=== PATIENT | male | born 1955 | race Caucasian/White ===

== ENCOUNTER 2024-08-18 12:57 | Inpatient (IN) | payer MEDICARE ==
[2024-08-18] VITALS (9 sets, daily range): BP systolic 146–165; BP diastolic 89–104; PULSE 55–67; RESP 12–17; O2SAT 91–96
[~2024-08-18] VITALS: Ht 182.9 cm; Wt 104.6 kg
[2024-08-18] MEDS ORDERED: ASPI-1071 PO (13:07)
[2024-08-18 13:15] LABS: BASOPHILS # (AUTO) 0.1 X10'3 (0-0.2); BASOPHILS % (AUTO) 1.1 % (0-1); EOSINOPHILS # (AUTO) 0.2 X10'3 (0-0.9); EOSINOPHILS % (AUTO) 1.9 % (0-6); HEMATOCRIT 48.8 % (42.0-52.0); HEMOGLOBIN 16.5 g/dl (14.0-17.9); LYMPHOCYTES # (AUTO) 1.8 X10'3 (1.1-4.8); LYMPHOCYTES % (AUTO) 20.6 % (21-51); MEAN CORPUSCULAR HEMOGLOBIN 32.4 PG (27.0-31.0); MEAN CORPUSCULAR HGB CONC 33.9 g/dL (33.0-36.5); MEAN CORPUSCULAR VOLUME 95.5 FL (78-98); MEAN PLATELET VOLUME 7.5 FL (7.4-10.4); MONOCYTES # (AUTO) 0.9 X10'3 (0-0.9); MONOCYTES % (AUTO) 10.5 % (2-12); NEUTROPHILS # (AUTO) 5.6 X10'3 (1.8-7.7); NEUTROPHILS % (AUTO) 65.9 % (42-75); PLATELET COUNT 223 X10'3 (140-440); RED BLOOD COUNT 5.11 X10'6 (4.70-6.10); RED CELL DISTRIBUTION WIDTH 13.2 % (11.5-14.5); WHITE BLOOD COUNT 8.5 X10'3 (4.5-11.0)
[2024-08-18] MEDS: MESSAGE TO NURSING IV ONE ×2 (13:20→16:15)
[2024-08-18] MEDS: metoprolol tartrate 1mg/ml inj IV SCH (13:20)
[2024-08-18] MEDS: heparin 25,000 UNIT/250ml bag 250 ML IV PRN (13:20)
[2024-08-18] MEDS: metoprolol tartrate 50mg tablet PO ONE (13:22)
[2024-08-18 13:32] LABS: INR 1.1 INR; PROTHROMBIN TIME 11.9 SECONDS (9.0-12.0)
[2024-08-18 13:38] LABS: ALANINE AMINOTRANSFERASE 34 U/L (12-78); ALBUMIN 3.7 G/DL (3.4-5.0); ALKALINE PHOSPHATASE 85 IU/L (46-116); ANION GAP 8 (8-16); ASPARTATE AMINO TRANSFERASE 47 U/L (10-37); BILIRUBIN,TOTAL 0.6 MG/DL (0.1-1.0); BLOOD UREA NITROGEN 16 MG/DL (7-18); BUN/CREATININE RATIO 15.7 (10.0-20.0); CALCIUM 8.6 MG/DL (8.5-10.1); CHLORIDE 108 MMOL/L (99-107); CREATININE 1.02 MG/DL (0.60-1.10); GLUCOSE 117 MG/DL (70-104); POTASSIUM 3.7 MMOL/L (3.5-5.1); SODIUM 144 MMOL/L (135-145); TOTAL CARBON DIOXIDE 27.8 MMOL/L (24-32); TOTAL PROTEIN 7.4 G/DL (6.4-8.2); eCRCL 77 ML/MIN; eGFR 73 ML/MIN
[2024-08-18 13:42] LABS: D-DIMER 0.55 MG/L FEU (0-0.50)
[2024-08-18 13:47] LABS: PRO BRAIN NATRIURETIC PEPTIDE 1551 PG/ML (0-125)
[2024-08-18 13:58] LABS: APTT 80 SECONDS (22-32)
[2024-08-18] MEDS ORDERED: midazolam 1 mg/ML 2ml injection ONE (14:13)
[2024-08-18] MEDS ORDERED: verapamil 2.5 mg/ml inj IV ONE (14:13)
[2024-08-18] MEDS ORDERED: fentaNYL/PF 50MCG/1 ML 2ML syringe ONE (14:13)
[2024-08-18] MEDS ORDERED: LIDOcaine 1% (10mg/ml) 2ml vial ONE (14:13)
[2024-08-18] MEDS ORDERED: heparin 1,000unit/ml 10ml vial 10 ML ONE (14:14)
[2024-08-18] MEDS ORDERED: nitroGLYCERIN 500mcg/5mL D5W 5 ML IV ONE (14:14)
[2024-08-18] MEDS ORDERED: iohexol 350MG/ML 100ml bottle IV ONE (14:14)
[2024-08-18] MEDS ORDERED: insulin glargine (Lantus) pen - multi-dose SQ PRN (15:05)
[2024-08-18] MEDS ORDERED: Insulin Reg/NS 100units/100mL 100 ML IV SCH (15:05)
[2024-08-18] MEDS ORDERED: cefazolin 2gm/D5W 100mL 100 ML IV ONE (15:05)
[2024-08-18] MEDS: MESSAGE TO PHARMACY IJ ONE (15:05)
[2024-08-18] MEDS: VANCOMYCIN/H2O 1.5g/300mL PB 300 ML IV ONE (15:05)
[2024-08-18] MEDS ORDERED: dextrose 50%-water 50ml dispensing syringe IV PRN (15:05)
[2024-08-18] MEDS: MESSAGE TO NURSING PO ONE ×8 (15:05→15:55)
[2024-08-18] MEDS: ceFAZolin 2gm in dextrose, iso 50 ML IV ONE (15:20)
[2024-08-18] MEDS ORDERED: potassium Cl 40MEQ/270ML bag 250 ML IV PRN (15:55)
[2024-08-18] MEDS ORDERED: potassium CL 10mEq/100ml bag 100 ML IV PRN (15:55)
[2024-08-18] MEDS ORDERED: magnesium sulf-water 4G/100mL 100 ML IV PRN (15:55)
[2024-08-18] MEDS ORDERED: potassium Cl 40MEQ/1/2NS 520ml 520 ML IV PRN (15:55)
[2024-08-18] MEDS ORDERED: potassium Cl 20 mEq SR tablet PO PRN (15:55)
[2024-08-18] MEDS ORDERED: potassium Cl 20mEq/100mL bag 100 ML IV PRN (15:55)
[2024-08-18] MEDS ORDERED: magnesium sulf-water 2g/50mL 50 ML IV PRN (15:55)
[2024-08-18 17:59] LABS: BILIRUBIN,URINE NEGATIVE (Neg); CLARITY,URINE CLEAR (Clear); COLOR,URINE YELLOW (Yellow); GLUCOSE, URINE NEGATIVE (Neg); KETONES,URINE NEGATIVE (Neg); LEUKOCYTE ESTERASE ,URINE NEGATIVE (Neg); NITRITES, URINE NEGATIVE (Neg); OCCULT BLOOD,URINE NEGATIVE (Neg); PH,URINE 6.5 (4.8-8.0); PROTEIN,URINE NEGATIVE (Neg); UROBILINOGEN,URINE 0.2 E.U/dL (0.2-1.0)
[2024-08-18 18:06] LABS: UA COLLECTION TYPE NON-SPECIFIED
[2024-08-18 18:08] LABS: URINE AMPHETAMINE SCREEN NEGATIVE (Neg); URINE BARBITUATE SCREEN NEGATIVE (Neg); URINE BENZODIAZEPINES SCREEN POSITIVE (Neg); URINE CANNABINOID SCREEN NEGATIVE (Neg); URINE COCAINE SCREEN NEGATIVE (Neg); URINE METHADONE SCREEN NEGATIVE (Neg); URINE OPIATE SCREEN NEGATIVE (Neg); URINE PHENCYCLIDINE SCREEN NEGATIVE (Neg)
[2024-08-18] MEDS ORDERED: mupirocin 2% ointment 22GM NS SCH (20:00)
[2024-08-18 20:51] LABS: ABG BASE EXCESS -3.4 mmol/L (-2.0-3.0); ABG HCO3 19.8 mmol/L (21.0-28.0); ABG OXYGEN SATURATION 95.6 % (94.0-98.0); ABG PCO2 (T) 31.3 mmHg (35.0-48.0); ABG PO2 (T) 78.3 mmHg (83.0-108.0); ALLEN'S TEST POSITIVE; FCOHb 1.1 % (0.5-1.5); FHHb 4.3 % (0.0-5.0); FMetHb 0.3 % (0.0-1.5); FO2Hb 94.3 % (94.0-98.0); MODE ROOM AIR; PATIENT TEMPERATURE 37.1; TOTAL HEMOGLOBIN 15.8 G/dl (13.5-17.5)
[2024-08-18] MEDS ORDERED: mupirocin 2% nasal ointment 1gm UD NS SCH (21:39)
[2024-08-18] MEDS: mupirocin 2% nasal ointment 1gm UD NS SCH (22:00)
[2024-08-19] VITALS (33 sets, daily range): BP systolic 91–179; BP diastolic 52–117; PULSE 52–82; RESP 11–24; TEMP 98.1; O2SAT 91–98
[2024-08-19] MEDS ORDERED: heparin 25,000 UNIT/250ml bag 250 ML IV PRN (01:45)
[2024-08-19] MEDS: heparin 10,000 units/1 ML INJ IV PRN (01:53)
[2024-08-19] MEDS: MESSAGE TO NURSING IV ONE (02:00)
[2024-08-19 04:44] LABS: BASOPHILS # (AUTO) 0.1 X10'3 (0-0.2); BASOPHILS % (AUTO) 0.7 % (0-1); EOSINOPHILS # (AUTO) 0.3 X10'3 (0-0.9); EOSINOPHILS % (AUTO) 3.2 % (0-6); HEMATOCRIT 47.2 % (42.0-52.0); HEMOGLOBIN 15.8 g/dl (14.0-17.9); LYMPHOCYTES % (AUTO) 21.9 % (21-51); MEAN CORPUSCULAR HEMOGLOBIN 32.3 PG (27.0-31.0); MEAN CORPUSCULAR HGB CONC 33.4 g/dL (33.0-36.5); MEAN CORPUSCULAR VOLUME 96.6 FL (78-98); MEAN PLATELET VOLUME 7.7 FL (7.4-10.4); MONOCYTES # (AUTO) 0.9 X10'3 (0-0.9); MONOCYTES % (AUTO) 9.8 % (2-12); NEUTROPHILS # (AUTO) 5.8 X10'3 (1.8-7.7); NEUTROPHILS % (AUTO) 64.4 % (42-75); PLATELET COUNT 199 X10'3 (140-440); RED BLOOD COUNT 4.89 X10'6 (4.70-6.10)
[2024-08-19 04:53] LABS: GLUCOSE 105 MG/DL (70-104); SODIUM 143 MMOL/L (135-145)
[2024-08-19 04:54] LABS: ALBUMIN 3.3 G/DL (3.4-5.0); ANION GAP 6 (8-16); BLOOD UREA NITROGEN 13 MG/DL (7-18); BUN/CREATININE RATIO 16.5 (10.0-20.0); CALCIUM 8.5 MG/DL (8.5-10.1); CHLORIDE 108 MMOL/L (99-107); CREATININE 0.79 MG/DL (0.60-1.10); POTASSIUM 4.1 MMOL/L (3.5-5.1); TOTAL CARBON DIOXIDE 28.6 MMOL/L (24-32); eCRCL 100 ML/MIN; eGFR > 90 ML/MIN
[2024-08-19 04:57] LABS: INR 1.1 INR; PROTHROMBIN TIME 11.7 SECONDS (9.0-12.0)
[2024-08-19] MEDS: ceFAZolin 2gm in dextrose, iso 50 ML IV ONE (05:30)
[2024-08-19] MEDS: gabapentin 400mg capsule PO ONE (06:47)
[2024-08-19] MEDS ORDERED: vancomycin 1,000mg inj ONE (06:49)
[2024-08-19] MEDS ORDERED: epiNEPHrine 1 mg/ml inj ONE (06:50)
[2024-08-19] MEDS ORDERED: ceFAZolin 1000mg inj ONE (06:50)
[2024-08-19] MEDS ORDERED: BUPIVAcaine 0.5% inj/PF 30 ML ONE (06:50)
[2024-08-19] MEDS: MESSAGE TO NURSING PO ONE ×2 (06:57)
[2024-08-19] MEDS: ceFAZolin 1000mg inj IR ONE (07:15)
[2024-08-19] MEDS ORDERED: MIDAZolam 1 MG/ML 5ML VIAL ONE (07:45)
[2024-08-19] MEDS ORDERED: SUfentanil 50mcg/ml 1ml amp IV ONE (07:45)
[2024-08-19] MEDS: LORazepam 2 mg/ml vial IV ONE (07:47)
[2024-08-19] MEDS: famotidine 20mg tablet PO ONE (07:47)
[2024-08-19] MEDS ORDERED: rocuronium 10mg/ml inj IV ONE ×3 (07:48→10:41)
[2024-08-19] MEDS: vancomycin/NS 1 GM ADD-VANTAGE 250 ML IV ONE (07:48)
[2024-08-19] MEDS ORDERED: propofol inj 20 ML IV ONE (07:48)
[2024-08-19] MEDS ORDERED: albumin (human) 25% 100 ML IV solution IV ONE (08:00)
[2024-08-19] MEDS ORDERED: sevoflurane 250ml liquid IH ONE (08:08)
[2024-08-19 09:21] LABS: ABG BASE EXCESS -1.5 mmol/L (-2.0-3.0); ABG HCO3 23.5 mmol/L (21.0-28.0); ABG OXYGEN SATURATION 98.8 % (94.0-98.0); ABG PCO2 40.9 mmHg (35.0-48.0); ABG PH 7.378 (7.350-7.450); ABG PO2 135.7 mmHg (83.0-108.0); CL (ABG) 106 mmol/L (98-107); FCOHb 0.7 % (0.5-1.5); FHHb 1.2 % (0.0-5.0); FMetHb 0.3 % (0.0-1.5); FO2Hb 97.8 % (94.0-98.0); GLUCOSE (ABG) 115 mg/dl (65-95); IONIZED CA (ABG) 1.13 mmol/L (1.15-1.33); K (ABG) 3.7 mmol/L (3.40-4.50); TOTAL HEMOGLOBIN 15.6 G/dl (13.5-17.5)
[2024-08-19 09:56] LABS: ABG BASE EXCESS -0.9 mmol/L (-2.0-3.0); ABG HCO3 23.7 mmol/L (21.0-28.0); ABG OXYGEN SATURATION 99.4 % (94.0-98.0); ABG PCO2 38.9 mmHg (35.0-48.0); ABG PH 7.403 (7.350-7.450); CL (ABG) 103 mmol/L (98-107); FHHb 0.6 % (0.0-5.0); FMetHb 0.3 % (0.0-1.5); FO2Hb 99.1 % (94.0-98.0); GLUCOSE (ABG) 115 mg/dl (65-95); IONIZED CA (ABG) 0.94 mmol/L (1.15-1.33); K (ABG) 3.5 mmol/L (3.40-4.50); TOTAL HEMOGLOBIN 10.9 G/dl (13.5-17.5)
[2024-08-19 10:31] LABS: ABG BASE EXCESS -2.1 mmol/L (-2.0-3.0); ABG HCO3 21.8 mmol/L (21.0-28.0); ABG OXYGEN SATURATION 99.5 % (94.0-98.0); ABG PCO2 34.2 mmHg (35.0-48.0); ABG PH 7.422 (7.350-7.450); CL (ABG) 105 mmol/L (98-107); FCOHb 0.1 % (0.5-1.5); FHHb 0.5 % (0.0-5.0); FMetHb 0.3 % (0.0-1.5); FO2Hb 99.1 % (94.0-98.0); GLUCOSE (ABG) 124 mg/dl (65-95); IONIZED CA (ABG) 0.98 mmol/L (1.15-1.33); K (ABG) 4.2 mmol/L (3.40-4.50); TOTAL HEMOGLOBIN 11.6 G/dl (13.5-17.5)
[2024-08-19] MEDS ORDERED: fentaNYL/PF 50MCG/1 ML 2ML syringe ONE (10:39)
[2024-08-19] MEDS ORDERED: Insulin Reg/NS 100units/100mL 100 ML IV SCH (10:42)
[2024-08-19 11:21] LABS: ABG HCO3 VENOUS 25.1 mmol/L (22.0-29.0); ABG OXYGEN SATURATION VENOUS 70.7 % (60.0-85.0); ABG PCO2 VENOUS 42.7 mmHg (38.0-54.0); ABG PH (VENOUS) 7.387 (7.320-7.430); CL (ABG) 106 mmol/L (98-107); FCOHb VENOUS 0.6 % (0.5-1.5); FMetHb VENOUS 0.3 % (0.5-1.5); FO2Hb VENOUS 70.1 % (0-80.0); GLUCOSE (ABG) 123 mg/dl (65-95); IONIZED CA (ABG) 1.12 mmol/L (1.15-1.33); K (ABG) 3.9 mmol/L (3.40-4.50); TOTAL HEMOGLOBIN 11.5 G/dl (13.5-17.5)
[2024-08-19 11:24] LABS: ACTIVATED CLOTTING TIME 130 SEC (101-148)
[2024-08-19] MEDS ORDERED: potassium CL 10mEq/100ml bag 100 ML IV PRN (11:30)
[2024-08-19] MEDS ORDERED: acetaminophen 325mg tablet PO PRN ×2 (11:30)
[2024-08-19] MEDS ORDERED: magnesium sulf-water 4G/100mL 100 ML IV PRN (11:30)
[2024-08-19] MEDS ORDERED: dextrose 50%-water 50ml dispensing syringe IV PRN (11:30)
[2024-08-19] MEDS ORDERED: mineral oil 133ml enema RC PRN (11:30)
[2024-08-19] MEDS ORDERED: sodium phosphate inj. 15 MMOL in dextrose 5%-water 250 ML IV PRN (11:30)
[2024-08-19] MEDS ORDERED: magnesium hydroxide 30ml (MOM) UD suspension PO PRN (11:30)
[2024-08-19] MEDS ORDERED: niCARDipine-NS 40mg/200ml IVPB 200 ML IV PRN (11:30)
[2024-08-19] MEDS ORDERED: potassium Cl 20 mEq SR tablet PO PRN (11:30)
[2024-08-19] MEDS ORDERED: potassium Cl 40MEQ/1/2NS 520ml 520 ML IV PRN (11:30)
[2024-08-19] MEDS ORDERED: potassium Cl 40MEQ/270ML bag 250 ML IV PRN (11:30)
[2024-08-19] MEDS ORDERED: metoclopramide 5 mg/ml inj IV PRN (11:30)
[2024-08-19] MEDS ORDERED: sodium phosphate inj. 30 MMOL in dextrose 5%-water 250 ML IV PRN (11:30)
[2024-08-19] MEDS ORDERED: insulin glargine (Lantus) pen - multi-dose SQ PRN (11:30)
[2024-08-19] MEDS ORDERED: bisacodyl 10mg suppository rectal RC PRN (11:30)
[2024-08-19 12:11] LABS: ABG BASE EXCESS -0.4 mmol/L (-2.0-3.0); ABG HCO3 24.7 mmol/L (21.0-28.0); ABG OXYGEN SATURATION 98.4 % (94.0-98.0); ABG PH (T) 7.395 (7.350-7.450); ABG PO2 (T) 113.8 mmHg (83.0-108.0); FHHb 1.6 % (0.0-5.0); FMetHb 0.3 % (0.0-1.5); FO2Hb 97.1 % (94.0-98.0); MODE SIMV; PATIENT TEMPERATURE 36.2; PEEP 5 cm H2O; RESPIRATORY RATE 12 b/min; TIDAL VOLUME 550 mL; TOTAL HEMOGLOBIN 13.6 G/dl (13.5-17.5)
[2024-08-19 12:27] LABS: BASOPHILS % (AUTO) 0.3 % (0-1); EOSINOPHILS # (AUTO) 0.1 X10'3 (0-0.9); EOSINOPHILS % (AUTO) 0.8 % (0-6); HEMATOCRIT 38.7 % (42.0-52.0); HEMOGLOBIN 13.1 g/dl (14.0-17.9); LYMPHOCYTES # (AUTO) 1.1 X10'3 (1.1-4.8); LYMPHOCYTES % (AUTO) 7.4 % (21-51); MEAN CORPUSCULAR HEMOGLOBIN 32.5 PG (27.0-31.0); MEAN CORPUSCULAR HGB CONC 33.8 g/dL (33.0-36.5); MEAN CORPUSCULAR VOLUME 96.3 FL (78-98); MEAN PLATELET VOLUME 7.8 FL (7.4-10.4); MONOCYTES # (AUTO) 0.5 X10'3 (0-0.9); MONOCYTES % (AUTO) 3.4 % (2-12); NEUTROPHILS # (AUTO) 13.2 X10'3 (1.8-7.7); NEUTROPHILS % (AUTO) 88.1 % (42-75); PLATELET COUNT 120 X10'3 (140-440); RED BLOOD COUNT 4.01 X10'6 (4.70-6.10); RED CELL DISTRIBUTION WIDTH 12.8 % (11.5-14.5); WHITE BLOOD COUNT 14.9 X10'3 (4.5-11.0)
[2024-08-19] MEDS: sodium chloride 0.45% 1,000 ML IV SCH (12:33)
[2024-08-19] MEDS: nitroGLYCERIN-Tridil 50MG/D5W 250 ML IV SCH (12:34)
[2024-08-19] MEDS: albumin (Human) 5% 250ml 250 ML IV PRN (12:41)
[2024-08-19 12:45] LABS: APTT 29 SECONDS (22-32); INR 1.2 INR; PROTHROMBIN TIME 12.8 SECONDS (9.0-12.0)
[2024-08-19 12:47] LABS: ALANINE AMINOTRANSFERASE 22 U/L (12-78); ALBUMIN 2.7 G/DL (3.4-5.0); ALBUMIN/GLOBULIN RATIO 1.1 (1.1-1.5); ALKALINE PHOSPHATASE 52 IU/L (46-116); ANION GAP 9 (8-16); BLOOD UREA NITROGEN 11 MG/DL (7-18); BUN/CREATININE RATIO 16.4 (10.0-20.0); CALCIUM 8.1 MG/DL (8.5-10.1); CHLORIDE 110 MMOL/L (99-107); CREATININE 0.67 MG/DL (0.60-1.10); GLUCOSE 132 MG/DL (70-104); MAGNESIUM 2.3 MG/DL (1.5-2.4); SODIUM 145 MMOL/L (135-145); TOTAL CARBON DIOXIDE 26.3 MMOL/L (24-32); TOTAL PROTEIN 5.1 G/DL (6.4-8.2); eCRCL 117 ML/MIN; eGFR > 90 ML/MIN
[2024-08-19 12:50] LABS: ASPARTATE AMINO TRANSFERASE 49 U/L (10-37); PHOSPHORUS 2.5 MG/DL (2.3-4.5)
[2024-08-19] MEDS: magnesium sulf-water 2g/50mL 50 ML IV PRN (12:55)
[2024-08-19] MEDS: potassium Cl 20mEq/100mL bag 100 ML IV PRN (12:56)
[2024-08-19] MEDS: Insulin Reg/NS 100units/100mL 100 ML IV SCH (13:04)
[2024-08-19] MEDS: morphine 4 MG/ML inj SYRINge IV PRN (13:15)
[2024-08-19] MEDS: ceFAZolin/D5W- 1GM premix 50 ML IV SCH (15:56)
[2024-08-19 18:26] LABS: BASOPHILS % (AUTO) 0.1 % (0-1); EOSINOPHILS % (AUTO) 0.1 % (0-6); HEMATOCRIT 34.8 % (42.0-52.0); HEMOGLOBIN 11.6 g/dl (14.0-17.9); LYMPHOCYTES # (AUTO) 0.5 X10'3 (1.1-4.8); LYMPHOCYTES % (AUTO) 3.4 % (21-51); MEAN CORPUSCULAR HEMOGLOBIN 32.3 PG (27.0-31.0); MEAN CORPUSCULAR HGB CONC 33.5 g/dL (33.0-36.5); MEAN CORPUSCULAR VOLUME 96.4 FL (78-98); MONOCYTES # (AUTO) 0.5 X10'3 (0-0.9); MONOCYTES % (AUTO) 3.5 % (2-12); NEUTROPHILS # (AUTO) 13.3 X10'3 (1.8-7.7); NEUTROPHILS % (AUTO) 92.9 % (42-75); PLATELET COUNT 129 X10'3 (140-440); RED BLOOD COUNT 3.61 X10'6 (4.70-6.10); RED CELL DISTRIBUTION WIDTH 13.2 % (11.5-14.5); WHITE BLOOD COUNT 14.3 X10'3 (4.5-11.0)
[2024-08-19 18:39] LABS: ALBUMIN 3.1 G/DL (3.4-5.0); ANION GAP 8 (8-16); BLOOD UREA NITROGEN 14 MG/DL (7-18); BUN/CREATININE RATIO 13.1 (10.0-20.0); CALCIUM 7.6 MG/DL (8.5-10.1); CHLORIDE 112 MMOL/L (99-107); CREATININE 1.07 MG/DL (0.60-1.10); GLUCOSE 142 MG/DL (70-104); MAGNESIUM 2.7 MG/DL (1.5-2.4); PHOSPHORUS 2.8 MG/DL (2.3-4.5); POTASSIUM 3.8 MMOL/L (3.5-5.1); SODIUM 144 MMOL/L (135-145); TOTAL CARBON DIOXIDE 24.5 MMOL/L (24-32); eCRCL 74 ML/MIN; eGFR 69 ML/MIN
[2024-08-19] MEDS: vancomycin/NS 1 GM ADD-VANTAGE 250 ML IV SCH (19:40)
[2024-08-19] MEDS: sennosides/docusate sodium tablet PO SCH (19:40)
[2024-08-19] MEDS: mupirocin 2% nasal ointment 1gm UD NS SCH (19:40)
[2024-08-19] MEDS: atorvastatin 10mg tablet PO SCH (19:40)
[2024-08-19 19:59] LABS: ABG BASE EXCESS -3.5 mmol/L (-2.0-3.0); ABG HCO3 20.4 mmol/L (21.0-28.0); ABG OXYGEN SATURATION 91.9 % (94.0-98.0); ABG PCO2 (T) 33.9 mmHg (35.0-48.0); ABG PH (T) 7.399 (7.350-7.450); ABG PO2 (T) 65.6 mmHg (83.0-108.0); FCOHb 0.9 % (0.5-1.5); FMetHb 0.3 % (0.0-1.5); FO2Hb 90.8 % (94.0-98.0); MODE VENT - SIMV; PATIENT TEMPERATURE 37.6; PEEP 5 cm H2O; RESPIRATORY RATE 12 b/min; TIDAL VOLUME 550 mL; TOTAL HEMOGLOBIN 12.1 G/dl (13.5-17.5)
[2024-08-19] MEDS ORDERED: VANCOMYCIN 1GM 200ML H20 (PEG) 200 ML IV SCH (20:00)
[2024-08-19] MEDS: ondansetron/PF 4mg/2ml inj IV PRN (21:12)
[2024-08-19] MEDS: morphine 2 MG/ML inj. syringe IV PRN (21:13)
[2024-08-19] MEDS: dexmedetomidin/NS 400mcg/100ml 100 ML IV PRN (21:52)
[2024-08-20] VITALS (31 sets, daily range): BP systolic 91–147; BP diastolic 50–85; PULSE 51–109; RESP 10–32; O2SAT 91–98
[2024-08-20 03:56] LABS: BASOPHILS % (AUTO) 0.1 % (0-1); EOSINOPHILS % (AUTO) 0 % (0-6); HEMATOCRIT 30.1 % (42.0-52.0); HEMOGLOBIN 10.1 g/dl (14.0-17.9); LYMPHOCYTES # (AUTO) 0.5 X10'3 (1.1-4.8); LYMPHOCYTES % (AUTO) 3.9 % (21-51); MEAN CORPUSCULAR HEMOGLOBIN 32.6 PG (27.0-31.0); MEAN CORPUSCULAR HGB CONC 33.7 g/dL (33.0-36.5); MEAN CORPUSCULAR VOLUME 96.9 FL (78-98); MEAN PLATELET VOLUME 8.3 FL (7.4-10.4); MONOCYTES # (AUTO) 0.7 X10'3 (0-0.9); MONOCYTES % (AUTO) 5.9 % (2-12); NEUTROPHILS # (AUTO) 10.8 X10'3 (1.8-7.7); NEUTROPHILS % (AUTO) 90.1 % (42-75); PLATELET COUNT 99 X10'3 (140-440); RED BLOOD COUNT 3.11 X10'6 (4.70-6.10); WHITE BLOOD COUNT 11.9 X10'3 (4.5-11.0)
[2024-08-20 03:58] LABS: ABG BASE EXCESS -2.5 mmol/L (-2.0-3.0); ABG OXYGEN SATURATION 89.9 % (94.0-98.0); ABG PCO2 (T) 31.1 mmHg (35.0-48.0); ABG PH (T) 7.444 (7.350-7.450); ABG PO2 (T) 53.7 mmHg (83.0-108.0); FCOHb 0.4 % (0.5-1.5); FMetHb 0.3 % (0.0-1.5); FO2Hb 89.3 % (94.0-98.0); MODE VENT - CPAP; PATIENT TEMPERATURE 36.5; PEEP 8 cm H2O; TOTAL HEMOGLOBIN 10.7 G/dl (13.5-17.5)
[2024-08-20 04:02] LABS: ALANINE AMINOTRANSFERASE 17 U/L (12-78); ALBUMIN 3.4 G/DL (3.4-5.0); ALBUMIN/GLOBULIN RATIO 1.6 (1.1-1.5); ALKALINE PHOSPHATASE 41 IU/L (46-116); ANION GAP 6 (8-16); ASPARTATE AMINO TRANSFERASE 45 U/L (10-37); BILIRUBIN,TOTAL 0.8 MG/DL (0.1-1.0); BLOOD UREA NITROGEN 19 MG/DL (7-18); BUN/CREATININE RATIO 18.6 (10.0-20.0); CALCIUM 7.5 MG/DL (8.5-10.1); CHLORIDE 113 MMOL/L (99-107); CREATININE 1.02 MG/DL (0.60-1.10); GLUCOSE 122 MG/DL (70-104); MAGNESIUM 2.3 MG/DL (1.5-2.4); PHOSPHORUS 2.9 MG/DL (2.3-4.5); POTASSIUM 4.5 MMOL/L (3.5-5.1); SODIUM 144 MMOL/L (135-145); TOTAL CARBON DIOXIDE 24.7 MMOL/L (24-32); TOTAL PROTEIN 5.5 G/DL (6.4-8.2); eCRCL 77 ML/MIN; eGFR 73 ML/MIN
[2024-08-20] MEDS: aspirin 81mg tab.chew PO SCH (07:07)
[2024-08-20] MEDS: metoprolol tartrate 12.5mg (1/2 tablet) PO SCH (07:07)
[2024-08-20 08:07] LABS: ABG PO2 414.3 mmHg (83.0-108.0)
[2024-08-20] MEDS: HYDROcodone/acetaminophen 10/325mg tab PO PRN ×2 (09:46→13:49)
[2024-08-20 09:58] LABS: ABG HCO3 20.1 mmol/L (21.0-28.0); ABG PCO2 (T) 30.6 mmHg (35.0-48.0); ABG PH (T) 7.434 (7.350-7.450); ABG PO2 (T) 53.9 mmHg (83.0-108.0); MODE VENT - CPAP; PATIENT TEMPERATURE 36.8; PEEP 5 cm H2O; TIDAL VOLUME 455 mL
[2024-08-20] MEDS: magnesium sulf-water 2g/50mL 50 ML IV ONE (23:11)
[2024-08-21] VITALS (23 sets, daily range): BP systolic 116–184; BP diastolic 74–110; PULSE 80–115; RESP 13–30; O2SAT 86–97
[2024-08-21 02:51] LABS: BASOPHILS % (AUTO) 0.1 % (0-1); EOSINOPHILS % (AUTO) 0 % (0-6); HEMATOCRIT 30.7 % (42.0-52.0); HEMOGLOBIN 10.2 g/dl (14.0-17.9); LYMPHOCYTES # (AUTO) 0.9 X10'3 (1.1-4.8); LYMPHOCYTES % (AUTO) 5.1 % (21-51); MEAN CORPUSCULAR HEMOGLOBIN 32.4 PG (27.0-31.0); MEAN CORPUSCULAR HGB CONC 33.2 g/dL (33.0-36.5); MEAN CORPUSCULAR VOLUME 97.5 FL (78-98); MEAN PLATELET VOLUME 8.3 FL (7.4-10.4); MONOCYTES # (AUTO) 1.3 X10'3 (0-0.9); NEUTROPHILS % (AUTO) 87.8 % (42-75); PLATELET COUNT 125 X10'3 (140-440); RED BLOOD COUNT 3.15 X10'6 (4.70-6.10); RED CELL DISTRIBUTION WIDTH 13.1 % (11.5-14.5); WHITE BLOOD COUNT 18.2 X10'3 (4.5-11.0)
[2024-08-21 03:04] LABS: ALBUMIN 3.3 G/DL (3.4-5.0); ANION GAP 5 (8-16); BLOOD UREA NITROGEN 25 MG/DL (7-18); CALCIUM 7.8 MG/DL (8.5-10.1); CHLORIDE 110 MMOL/L (99-107); CREATININE 1.04 MG/DL (0.60-1.10); GLUCOSE 151 MG/DL (70-104); MAGNESIUM 2.9 MG/DL (1.5-2.4); PHOSPHORUS 2.5 MG/DL (2.3-4.5); POTASSIUM 4.5 MMOL/L (3.5-5.1); SODIUM 142 MMOL/L (135-145); TOTAL CARBON DIOXIDE 26.8 MMOL/L (24-32); eCRCL 76 ML/MIN; eGFR 71 ML/MIN
[2024-08-21] MEDS: pantoprazole 40mg Tablet.DR PO SCH (08:14)
[2024-08-21] MEDS: metoprolol tartrate 25mg tablet PO SCH (08:15)
[2024-08-21] MEDS: amiodarone/D5 360MG/200ML BAG 200 ML IV SCH (14:57)
[2024-08-21] MEDS: amiodarone 150mg/dext, iso-os 100 ML IV ONE (14:57)
[2024-08-21] MEDS: hydrALAZINE 20mg/ml inj. IV PRN (21:36)
[2024-08-22] VITALS (22 sets, daily range): BP systolic 136–189; BP diastolic 66–103; PULSE 72–114; RESP 10–24; TEMP 98.6–99; O2SAT 91–98
[2024-08-22 02:34] LABS: BASOPHILS % (AUTO) 0.1 % (0-1); EOSINOPHILS % (AUTO) 0 % (0-6); HEMATOCRIT 30.9 % (42.0-52.0); HEMOGLOBIN 10.3 g/dl (14.0-17.9); LYMPHOCYTES # (AUTO) 1.3 X10'3 (1.1-4.8); LYMPHOCYTES % (AUTO) 8.5 % (21-51); MEAN CORPUSCULAR HEMOGLOBIN 32.3 PG (27.0-31.0); MEAN CORPUSCULAR HGB CONC 33.3 g/dL (33.0-36.5); MEAN PLATELET VOLUME 8.3 FL (7.4-10.4); MONOCYTES # (AUTO) 1.3 X10'3 (0-0.9); MONOCYTES % (AUTO) 8.4 % (2-12); NEUTROPHILS # (AUTO) 12.5 X10'3 (1.8-7.7); PLATELET COUNT 137 X10'3 (140-440); RED BLOOD COUNT 3.19 X10'6 (4.70-6.10); RED CELL DISTRIBUTION WIDTH 13.2 % (11.5-14.5); WHITE BLOOD COUNT 15.1 X10'3 (4.5-11.0)
[2024-08-22 02:53] LABS: ALBUMIN 3.1 G/DL (3.4-5.0); ANION GAP 7 (8-16); BLOOD UREA NITROGEN 17 MG/DL (7-18); BUN/CREATININE RATIO 18.1 (10.0-20.0); CALCIUM 7.9 MG/DL (8.5-10.1); CHLORIDE 107 MMOL/L (99-107); CREATININE 0.94 MG/DL (0.60-1.10); GLUCOSE 129 MG/DL (70-104); MAGNESIUM 2.1 MG/DL (1.5-2.4); PHOSPHORUS 1.7 MG/DL (2.3-4.5); POTASSIUM 3.9 MMOL/L (3.5-5.1); SODIUM 141 MMOL/L (135-145); TOTAL CARBON DIOXIDE 27.1 MMOL/L (24-32); eCRCL 84 ML/MIN; eGFR 80 ML/MIN
[2024-08-22] MEDS ORDERED: sodium phosphate inj. 30 MMOL in normal saline 250ml IV soln 250 ML IV PRN (04:36)
[2024-08-22] MEDS: sodium phosphate inj. 15 MMOL in normal saline 250ml IV soln 250 ML IV PRN (04:56)
[2024-08-22] MEDS: furosemide 40mg/4ml inj IV ONE (07:28)
[2024-08-22] MEDS: heparin, porcine 5000 units/ml vial SQ SCH (07:29)
[2024-08-22] MEDS: metoprolol tartrate 50mg tablet PO SCH (07:30)
[2024-08-22] MEDS: salt irrigation nasal spray 45 ML SPRAY NS PRN (14:00)
[2024-08-22] MEDS ORDERED: metoprolol tartrate 50mg tablet PO ONE (20:55)
[2024-08-22] MEDS: metoprolol tartrate 25mg tablet PO ONE (21:10)
[2024-08-23] VITALS (14 sets, daily range): BP systolic 137–168; BP diastolic 79–99; PULSE 72–102; RESP 13–20; TEMP 97.7–99.2; O2SAT 95–98
[2024-08-23 06:11] LABS: BASOPHILS % (AUTO) 0.1 % (0-1); EOSINOPHILS # (AUTO) 0.1 X10'3 (0-0.9); EOSINOPHILS % (AUTO) 0.4 % (0-6); HEMATOCRIT 34.6 % (42.0-52.0); HEMOGLOBIN 11.7 g/dl (14.0-17.9); LYMPHOCYTES # (AUTO) 1.6 X10'3 (1.1-4.8); LYMPHOCYTES % (AUTO) 12.1 % (21-51); MEAN CORPUSCULAR HEMOGLOBIN 32.5 PG (27.0-31.0); MEAN CORPUSCULAR HGB CONC 33.8 g/dL (33.0-36.5); MEAN CORPUSCULAR VOLUME 96.1 FL (78-98); MEAN PLATELET VOLUME 7.8 FL (7.4-10.4); MONOCYTES # (AUTO) 1.2 X10'3 (0-0.9); MONOCYTES % (AUTO) 9.1 % (2-12); NEUTROPHILS # (AUTO) 10.4 X10'3 (1.8-7.7); NEUTROPHILS % (AUTO) 78.3 % (42-75); PLATELET COUNT 214 X10'3 (140-440); RED CELL DISTRIBUTION WIDTH 13.2 % (11.5-14.5); WHITE BLOOD COUNT 13.3 X10'3 (4.5-11.0)
[2024-08-23 06:54] LABS: ALBUMIN 3.1 G/DL (3.4-5.0); ANION GAP 10 (8-16); BLOOD UREA NITROGEN 17 MG/DL (7-18); BUN/CREATININE RATIO 17.5 (10.0-20.0); CALCIUM 8.3 MG/DL (8.5-10.1); CHLORIDE 104 MMOL/L (99-107); CREATININE 0.97 MG/DL (0.60-1.10); GLUCOSE 114 MG/DL (70-104); PHOSPHORUS 1.9 MG/DL (2.3-4.5); POTASSIUM 3.9 MMOL/L (3.5-5.1); SODIUM 141 MMOL/L (135-145); TOTAL CARBON DIOXIDE 27.4 MMOL/L (24-32); eCRCL 81 ML/MIN; eGFR 77 ML/MIN
[2024-08-23] MEDS: Neutra Phos packet PO PRN (08:46)
[2024-08-23] MEDS: metoprolol tartrate 50mg tablet PO SCH ×2 (08:47→19:06)
[2024-08-23] MEDS: metoprolol tartrate 25mg tablet PO ONE (11:25)
[2024-08-23] MEDS: amiodarone 200mg tablet PO SCH (11:26)
[2024-08-24 02:00] VITALS: BP 144/82; PULSE 81; RESP 16; TEMP 97.8; O2SAT 96
[2024-08-24 06:00] VITALS: BP 152/92; PULSE 80; RESP 15; TEMP 97.9; O2SAT 94
[2024-08-24 07:12] LABS: MAGNESIUM 1.9 MG/DL (1.5-2.4); PHOSPHORUS 2.9 MG/DL (2.3-4.5); POTASSIUM 3.5 MMOL/L (3.5-5.1)
[2024-08-24 08:00] VITALS: RESP 15; O2SAT 94
[2024-08-24] MEDS ORDERED: ATOR10TA PO (09:39)
[2024-08-24] MEDS ORDERED: METO50TA16 PO (09:39)
[2024-08-24] MEDS ORDERED: HYDR-3972 PO (09:39)
[2024-08-24] MEDS ORDERED: AMI200T PO (09:39)
[2024-08-24 09:48] VITALS: PULSE 81; RESP 16; TEMP 97.9
[2024-08-24 11:00] VITALS: BP 162/104; PULSE 80; RESP 17; TEMP 97.1
== END 2024-08-24 12:32 | disposition home or self-care (01) | DRG 233 ==
LOC: ER 12:58 → CICU 2S 15:01 → PCU 3S 08-22 18:20
PROVIDERS: ADMIT Student in an Organized Health Care Education/Training Program; ATTEND Student in an Organized Health Care Education/Training Program
PROC: 4A023N7 Measurement of Cardiac Sampling and Pressure, Left Heart, Percutaneous Approach (ICD-10-PCS; 2024-08-18)
PROC: B2111ZZ Fluoroscopy of Multiple Coronary Arteries using Low Osmolar Contrast (ICD-10-PCS; 2024-08-18)
PROC: 021209W Bypass Coronary Artery, Three Arteries from Aorta with Autologous Venous Tissue, Open Approach (ICD-10-PCS; 2024-08-19)
PROC: 06BP4ZZ Excision of Right Saphenous Vein, Percutaneous Endoscopic Approach (ICD-10-PCS; 2024-08-19)
PROC: 5A1221Z Performance of Cardiac Output, Continuous (ICD-10-PCS; 2024-08-19)
PROC: B24BZZ4 Ultrasonography of Heart with Aorta, Transesophageal (ICD-10-PCS; 2024-08-19)
PROC: 02100Z9 Bypass Coronary Artery, One Artery from Left Internal Mammary, Open Approach (ICD-10-PCS; principal; 2024-08-19 08:08)
DX: T82.855A Stenosis of coronary artery stent, initial encounter (principal); I21.4 Non-ST elevation (NSTEMI) myocardial infarction; I47.20 Ventricular tachycardia, unspecified; I25.10 Atherosclerotic heart disease of native coronary artery without angina pectoris; I10 Essential (primary) hypertension; I48.91 Unspecified atrial fibrillation; I49.3 Ventricular premature depolarization; Z82.49 Family history of ischemic heart disease and other diseases of the circulatory system; Z95.5 Presence of coronary angioplasty implant and graft; Y83.8 Other surgical procedures as the cause of abnormal reaction of the patient, or of later complication, without mention of misadventure at the time of the procedure; Y92.89 Other specified places as the place of occurrence of the external cause; E87.70 Fluid overload, unspecified; R94.4 Abnormal results of kidney function studies
CPT/HCPCS: 36415; 36600; 71045; 80048; 80053; 80305; 81003; 82330; 82435; 82803; 82947; 82948; 83036; 83735; 83880; 84100; 84132; 84295; 84484; 85018; 85025; 85347; 85379; 85610; 85730; 86885; 86900; 86901; 86920; 87081; 93005; 93312; 93325; 93458; 93880; 93970; 94002; 94003; 96365; 96375; 96376; 97110; 97116; 97162; 97530; 99152; 99153; 99285; A4615; A4618; A4620; A6258; A6449; A7000; A7048; C1751; C1894; G0378; J0171; J0282; J0360; J0665; J0690; J1644; J1815; J1940; J2003; J2060; J2150; J2250; J2270; J2371; J2405; J2704; J2720; J2919; J3010; J3370; J3480; J3490; J7030; J7040; J7050; J7120; P9045; P9047; Q9967